=== PATIENT | male | born 1960 | race Caucasian/White ===

== ENCOUNTER → 2021-06-11 07:48 | Outpatient (CLI) | payer SELFPAY ==
[2021-06-11 09:35] LABS: Cholesterol 172 mg/dL (140-199); HDL Cholesterol 35 mg/dL (40-60); LDL Cholesterol Calculated 101 mg/dL (<100); Triglycerides 181 mg/dL (35-150)
[2021-06-11 10:01] LABS: TSH w/ Reflex to FT4 1.96 uIU/mL (0.47-4.68)
== END ==
PROVIDERS: PCP Physician Assistant; Referring Provider Internal Medicine Cardiovascular Disease; Visit Provider Internal Medicine Cardiovascular Disease
DX: I48.0 Paroxysmal atrial fibrillation (principal); Z00.00 Encounter for general adult medical examination without abnormal findings
CPT/HCPCS: 36415; 80061; 84443

== ENCOUNTER → 2023-07-15 13:18 | Outpatient (CLI) | payer SELFPAY ==
[2023-07-15 20:18] LABS: Hematocrit 38.5 % (41-53); Hemoglobin 13.6 g/dL (13.5-17.5)
[2023-07-15 20:25] LABS: BUN Creatinine Ratio 18.4 (6-22); Blood Urea Nitrogen 16 mg/dL (9-20); Calcium 9.7 mg/dL (8.4-10.2); Carbon Dioxide 30 mmol/L (22-32); Chloride 101 mmol/L (98-107); Estimated Glomerular Filt Rate > 60 mL/min (>60); Glucose 118 mg/dL (80-110); HEMOLYSIS < 15 (0-50); Sodium 137 mmol/L (137-145)
[2023-07-15 20:37] LABS: LDL Cholesterol Direct 101 mg/dL (<100)
[2023-07-15 20:55] LABS: Thyroid Stimulating Hormone 1.46 uIU/mL (0.47-4.68)
== END ==
PROVIDERS: PCP Physician Assistant; Visit Provider Family Medicine
DX: R00.2 Palpitations (principal); I48.91 Unspecified atrial fibrillation; I10 Essential (primary) hypertension
CPT/HCPCS: 80048; 83721; 84443; 85014; 85018

== ENCOUNTER → 2023-11-13 08:20 | Outpatient (CLI) | payer OTHER, SELFPAY ==
[2023-11-13 19:44] LABS: Add Manual Diff / Slide Review NO; Basophils Absolute Auto 100 /uL (0-100); Basophils Percent Auto 0.9 % (0-2); Eosinophils Absolute Auto 100 /uL (0-450); Eosinophils Percent Auto 1.9 % (2-4); Hematocrit 39.6 % (41-53); Hemoglobin 13.9 g/dL (13.5-17.5); Lymphocytes Absolute Auto 2500 /uL (1100-4500); Lymphocytes Percent Auto 36.6 % (25-40); Mean Corpuscular Hemoglobin 31.8 PG (26-34); Monocytes Absolute Auto 600 /uL (0-900); Monocytes Percent Auto 8.4 % (3-14); Neutrophils Absolute Auto 3600 /uL (1500-7000); Neutrophils Percent Auto 52.2 % (50-75); Platelet Count 202 X10^3/uL (150-400); Red Blood Cell Count 4.35 X10^6/uL (4.5-5.9); Red Cell Distribution Width 12.5 % (11.6-14.8); White Blood Cell Count 6.9 X10^3/uL (4.5-11.0)
[2023-11-13 19:48] LABS: Cholesterol 161 mg/dL (140-199); HDL Cholesterol 31 mg/dL (40-60); LDL Cholesterol Calculated 96 mg/dL (<100); Triglycerides 172 mg/dL (35-150)
[2023-11-13 19:51] LABS: HEMOLYSIS < 15 (0-50); Iron 188 ug/dL (49-181)
[2023-11-13 20:01] LABS: Total Iron Binding Capacity 262 ug/dL (261-462); Transferrin 200 mg/dL (206-381)
[2023-11-13 20:02] LABS: Percent Iron Saturation 72 % (20-50)
[2023-11-13 20:19] LABS: Prostate Specific Antigen Scrn 0.247 ng/mL (0.1-4.0)
[2023-11-13 20:23] LABS: Ferritin 435 ng/mL (18-464)
[2023-11-13 20:55] LABS: Vitamin B12 Reflex MMA if <400 523 pg/mL (239-931)
== END ==
PROVIDERS: PCP Family Medicine; Visit Provider Family Medicine
DX: Z13.9 Encounter for screening, unspecified (principal); Z12.5 Encounter for screening for malignant neoplasm of prostate; R07.89 Other chest pain; I10 Essential (primary) hypertension; D64.9 Anemia, unspecified
CPT/HCPCS: 80061; 82607; 82728; 82746; 83540; 83550; 85025; G0103

== ENCOUNTER → 2023-12-16 12:57 | Outpatient (CLI) | payer OTHER, SELFPAY ==
[2023-12-16 19:24] LABS: INR 1.1 (0.9-1.3); Prothrombin Time 12.3 SECONDS (9.4-12.5)
[2023-12-16 19:27] LABS: PTT Partial Thromboplastin Tim 37 SECONDS (25.1-36.5)
[2023-12-16 19:44] LABS: HEMOLYSIS < 15 (0-50); Iron 125 ug/dL (49-181)
[2023-12-16 19:51] LABS: Alanine Aminotransferase 34 IU/L (<50); Albumin 4.4 g/dL (3.5-5.0); Albumin Globulin Ratio 1.6 (1.0-2.8); Alkaline Phosphatase 82 U/L (38-126); Aspartate Aminotransferase 35 IU/L (17-59); Bilirubin Total 0.7 mg/dL (0.2-1.3); Bilirubin Unconjugated 0.5 mg/dL (0.0-1.1); Globulin 2.8 g/dL (1.7-4.1); HEMOLYSIS < 15 (0-50); Total Protein 7.2 g/dL (6.3-8.2)
[2023-12-16 19:57] LABS: Hemoglobin A1C% w Est Avg Glu 5.6 % (4.0-6.0)
[2023-12-16 19:58] LABS: Percent Iron Saturation 48 % (20-50); Total Iron Binding Capacity 263 ug/dL (261-462); Transferrin 186 mg/dL (206-381)
[2023-12-16 20:21] LABS: Ferritin 319 ng/mL (18-464)
[2023-12-17 18:07] LABS: Hepatitis B Surface Antigen NEGATIVE s/c (NEGATIVE)
[2023-12-17 18:17] LABS: Hep C Virus Ab w/Reflex Quant NEGATIVE s/c (NEGATIVE)
[2023-12-18 01:09] LABS: Hepatitis B Core Antibody Negative (Negative)
[2023-12-18 06:53] LABS: Hepatitis B Surf Ab Qualitativ Non Reactive (.)
== END ==
PROVIDERS: PCP Family Medicine; Visit Provider Family Medicine
DX: R73.9 Hyperglycemia, unspecified (principal); R79.0 Abnormal level of blood mineral; I10 Essential (primary) hypertension; K75.9 Inflammatory liver disease, unspecified
CPT/HCPCS: 80076; 82728; 83036; 83540; 83550; 85610; 85730; 86704; 86706; 86803; 87340

== ENCOUNTER → 2024-05-23 13:45 | Outpatient (CLI) | payer MEDICARE, SELFPAY ==
[2024-05-23 20:31] LABS: Add Manual Diff / Slide Review NO; Basophils Absolute Auto 0 /uL (0-100); Basophils Percent Auto 0.6 % (0-2); Eosinophils Absolute Auto 300 /uL (0-450); Eosinophils Percent Auto 3.5 % (2-4); Hematocrit 39.7 % (41-53); Hemoglobin 13.7 g/dL (13.5-17.5); Lymphocytes Absolute Auto 2900 /uL (1100-4500); Lymphocytes Percent Auto 38.8 % (25-40); Mean Corpuscular HGB Conc 34.4 % (30-36); Mean Corpuscular Hemoglobin 31.7 PG (26-34); Monocytes Absolute Auto 500 /uL (0-900); Monocytes Percent Auto 6.5 % (3-14); Neutrophils Absolute Auto 3800 /uL (1500-7000); Neutrophils Percent Auto 50.6 % (50-75); Platelet Count 196 X10^3/uL (150-400); Red Blood Cell Count 4.32 X10^6/uL (4.5-5.9); White Blood Cell Count 7.5 X10^3/uL (4.5-11.0)
[2024-05-23 20:38] LABS: HEMOLYSIS < 15 (0-50); Iron 145 ug/dL (49-181)
[2024-05-23 20:43] LABS: Alanine Aminotransferase 23 IU/L (<50); Albumin 4.2 g/dL (3.5-5.0); Albumin Globulin Ratio 1.5 (1.0-2.8); Alkaline Phosphatase 91 U/L (38-126); Aspartate Aminotransferase 28 IU/L (17-59); BUN Creatinine Ratio 14.1 (6-22); Bilirubin Total 0.9 mg/dL (0.2-1.3); Blood Urea Nitrogen 13 mg/dL (9-20); Calcium 9.3 mg/dL (8.4-10.2); Carbon Dioxide 28 mmol/L (22-32); Chloride 105 mmol/L (98-107); Estimated Glomerular Filt Rate > 60 mL/min (>60); Globulin 2.8 g/dL (1.7-4.1); Glucose 100 mg/dL (80-110); HEMOLYSIS < 15 (0-50); Potassium 4.4 mmol/L (3.4-5.1); Sodium 140 mmol/L (137-145)
[2024-05-23 21:12] LABS: Percent Iron Saturation 54 % (20-50); Total Iron Binding Capacity 271 ug/dL (261-462); Transferrin 198 mg/dL (206-381)
[2024-05-23 21:15] LABS: Ferritin 311 ng/mL (18-464)
== END ==
PROVIDERS: PCP Family Medicine; Visit Provider Family Medicine
DX: I10 Essential (primary) hypertension (principal); R79.0 Abnormal level of blood mineral; R73.9 Hyperglycemia, unspecified; D64.9 Anemia, unspecified
CPT/HCPCS: 80053; 82728; 83540; 83550; 85025

== ENCOUNTER → 2024-07-05 11:24 | Outpatient (CLI) | payer MEDICARE, OTHER, SELFPAY ==
[2024-07-05 19:02] LABS: Cholesterol 173 mg/dL (140-199); HDL Cholesterol 36 mg/dL (40-60); LDL Cholesterol Calculated 106 mg/dL (<100); Triglycerides 156 mg/dL (35-150)
[2024-07-05 19:35] LABS: Ferritin 288 ng/mL (18-464)
== END ==
PROVIDERS: Internal Medicine; PCP Family Medicine; Visit Provider Internal Medicine Cardiovascular Disease
DX: I10 Essential (primary) hypertension (principal); R79.89 Other specified abnormal findings of blood chemistry
CPT/HCPCS: 80061; 82728

== ENCOUNTER → 2024-08-01 14:30 | Outpatient (CLI) | payer MEDICARE, OTHER, SELFPAY ==
[2024-08-01 20:27] LABS: Ferritin 283 ng/mL (18-464)
== END ==
PROVIDERS: Internal Medicine; PCP Family Medicine
DX: E83.110 Hereditary hemochromatosis (principal); R79.89 Other specified abnormal findings of blood chemistry
CPT/HCPCS: 82728

== ENCOUNTER → 2024-08-29 14:34 | Outpatient (CLI) | payer MEDICARE, OTHER, SELFPAY ==
[2024-08-29 18:45] LABS: Hematocrit 39.3 % (41-53)
[2024-08-29 19:28] LABS: Ferritin 250 ng/mL (18-464)
== END ==
PROVIDERS: PCP Family Medicine; Visit Provider Internal Medicine
DX: E83.110 Hereditary hemochromatosis (principal)
CPT/HCPCS: 82728; 85014

== ENCOUNTER → 2024-09-26 14:26 | Outpatient (CLI) | payer MEDICARE, OTHER, SELFPAY ==
[2024-09-26 20:01] LABS: Hematocrit 40.1 % (41-53)
[2024-09-26 20:37] LABS: Ferritin 211 ng/mL (18-464)
== END ==
PROVIDERS: PCP Family Medicine; Visit Provider Internal Medicine
DX: E83.110 Hereditary hemochromatosis (principal); R79.89 Other specified abnormal findings of blood chemistry
CPT/HCPCS: 82728; 85014

== ENCOUNTER → 2024-10-24 14:34 | Outpatient (CLI) | payer MEDICARE, OTHER, SELFPAY ==
[2024-10-24 19:12] LABS: Hematocrit 38.1 % (41-53)
[2024-10-24 19:55] LABS: Ferritin 170 ng/mL (18-464)
== END ==
PROVIDERS: Internal Medicine; PCP Family Medicine
DX: E83.110 Hereditary hemochromatosis (principal); R79.89 Other specified abnormal findings of blood chemistry
CPT/HCPCS: 82728; 85014

== ENCOUNTER → 2024-11-21 14:29 | Outpatient (CLI) | payer MEDICARE, OTHER, SELFPAY ==
[2024-11-21 18:39] LABS: Hematocrit 37.9 % (41-53)
[2024-11-21 19:35] LABS: Ferritin 126 ng/mL (18-464)
== END ==
PROVIDERS: PCP Family Medicine; Visit Provider Internal Medicine
DX: E83.110 Hereditary hemochromatosis (principal)
CPT/HCPCS: 82728; 85014

== ENCOUNTER → 2025-05-08 10:20 | Outpatient (CLI) | payer MEDICARE, OTHER, SELFPAY ==
[2025-05-08 18:57] LABS: Add Manual Diff / Slide Review NO; Hematocrit 36.7 % (41-53); Hemoglobin 12.8 g/dL (13.5-17.5); Lymphocytes Absolute Auto 1800 /uL (1100-4500); Mean Corpuscular HGB Conc 34.9 % (30-36); Mean Corpuscular Hemoglobin 31.0 PG (26-34); Mean Corpuscular Volume 88.6 fL (80-100); Platelet Count 276 X10^3/uL (150-400)
[2025-05-08 19:20] LABS: Blood Urea Nitrogen 16 mg/dL (9-20); Calcium 9.3 mg/dL (8.4-10.2); Carbon Dioxide 29 mmol/L (22-32); Chloride 99 mmol/L (98-107); Cholesterol 151 mg/dL (140-199); Estimated Glomerular Filt Rate > 60 mL/min (>60); Glucose 95 mg/dL (70-99); HDL Cholesterol 40 mg/dL (40-60); HEMOLYSIS < 15 (0-50); Potassium 4.8 mmol/L (3.4-5.1); Sodium 135 mmol/L (137-145); Triglycerides 88 mg/dL (35-150)
[2025-05-08 19:50] LABS: Ferritin 137 ng/mL (18-464)
== END ==
PROVIDERS: Internal Medicine; PCP Family Medicine; Visit Provider Internal Medicine Cardiovascular Disease
DX: I10 Essential (primary) hypertension (principal); E83.110 Hereditary hemochromatosis; Z12.5 Encounter for screening for malignant neoplasm of prostate
CPT/HCPCS: 80048; 80061; 82728; 85025; G0103

== ENCOUNTER → 2025-07-20 13:38 | Outpatient (CLI) | payer MEDICARE, OTHER, SELFPAY ==
[2025-07-20 18:51] LABS: Hematocrit 35.6 % (41-53)
[2025-07-20 19:41] LABS: Ferritin 152 ng/mL (18-464)
== END ==
PROVIDERS: PCP Family Medicine; Visit Provider Internal Medicine
DX: E83.110 Hereditary hemochromatosis (principal); R79.89 Other specified abnormal findings of blood chemistry
CPT/HCPCS: 82728; 85014